=== PATIENT | female | born 1990 | race Two or more races ===

== ENCOUNTER 2022-06-29 19:10 | Emergency (ER) | payer MEDICAID, OTHER ==
[~2022-06-29] VITALS: Ht 157.5 cm; Wt 76.7 kg
[2022-06-29] MEDS ORDERED: TETANUS-DIPTH-ACEL PERTUSSIS 0.5ML SYR Tdap IM ONE (21:15)
[2022-06-29] MEDS ORDERED: cefTRIAXone SOD 1,000 MG VL IM ONE (21:15)
[2022-06-29] MEDS ORDERED: ACET-1158 PO (21:17)
[2022-06-29] MEDS ORDERED: CEPH-510 PO (21:17)
[2022-06-30 05:24] VITALS: BP 122/74
== END 2022-06-29 23:43 | disposition home or self-care (01) ==
LOC: ER 19:10
DX: S81.011A Laceration without foreign body, right knee, initial encounter (principal); Z98.890 Other specified postprocedural states; Y93.55 Activity, bike riding; Y92.89 Other specified places as the place of occurrence of the external cause; Y99.8 Other external cause status
CPT/HCPCS: 12002; 73562; 90471; 90715; 96372; 99284; J0696

== ENCOUNTER 2023-03-04 08:36 | Emergency (ER) | payer MEDICAID ==
[~2023-03-04] VITALS: Ht 157.5 cm; Wt 81.8 kg
[~2023-03-04 08:36] MED LIST: ACET500T58 PO; CEPH-510 PO
[2023-03-04 09:10] LABS: Basophils # (auto) 0 10 ^3/uL (0-0.2); Basophils % (auto) 0.2 % (0.0-2.0); Eosinophils # (auto) 0.1 10 ^3/uL (0-0.8); Hematocrit 41.7 % (36.0-46.0); Hemoglobin 13.9 g/dL (12.2-16.2); Lymphocytes # (auto) 1.8 10 ^3/uL (0.4-5.4); Mean Corpuscular Hemoglobin 30.1 pg (28.0-32.0); Mean Corpuscular Hgb Conc. 33.3 g/dL (32.0-36.0); Mean Corpuscular Volume 90.4 fL (80.0-100.0); Monocytes # (auto) 0.6 10 ^3/uL (0-1.3); Monocytes % (auto) 9.5 % (0.0-12.0); Neutrophils # (auto) 4.1 10 ^3/uL (1.6-8.6); Neutrophils % (auto) 61.3 % (37.0-80.0); Red Blood Cells 4.61 10^6/uL (4.0-5.20); White Blood Cell 6.8 10^3/uL (4.4-10.8)
[2023-03-04 11:03] VITALS: BP 122/78; PULSE 76; RESP 16; TEMP 97.9; O2SAT 98
== END 2023-03-04 11:07 | disposition home or self-care (01) ==
LOC: ER 08:36
DX: O20.0 Threatened abortion (principal); R10.2 Pelvic and perineal pain; Z3A.01 Less than 8 weeks gestation of pregnancy; Z91.013 Allergy to seafood
CPT/HCPCS: 36415; 76801; 76817; 84702; 85025

== ENCOUNTER 2023-06-12 21:23 | Emergency (ER) | payer MEDICAID ==
[~2023-06-12] VITALS: Ht 157.5 cm; Wt 84.9 kg
[2023-06-12 22:30] VITALS: BP 121/73; PULSE 81; RESP 20; TEMP 98
[2023-06-13 01:00] VITALS: O2SAT 96
== END 2023-06-13 01:09 | disposition home or self-care (01) ==
LOC: ER 21:23
DX: O26.892 Other specified pregnancy related conditions, second trimester (principal); J06.9 Acute upper respiratory infection, unspecified; R51.9 Headache, unspecified; Z3A.21 21 weeks gestation of pregnancy

== ENCOUNTER 2023-08-10 08:42 | Observation (INO) | payer MEDICAID ==
[~2023-08-10] VITALS: Ht 157.5 cm; Wt 79.4 kg
[2023-08-10] MEDS: LACTATED RINGER'S 1,000 ML IV ONE (10:47)
[2023-08-10] MEDS: FAMOTIDINE (10MG/ML) 2ML VL IV ONE (10:48)
[2023-08-10] MEDS: ONDANSETRON HCL 4 MG/2 ML VIAL IV PRN (10:48)
[2023-08-10 11:35] LABS: Basophils # (auto) 0 10 ^3/uL (0-0.2); Basophils % (auto) 0.1 % (0.0-2.0); Eosinophils # (auto) 0 10 ^3/uL (0-0.8); Eosinophils % (auto) 0.4 % (0.0-7.0); Hematocrit 34.5 % (36.0-46.0); Hemoglobin 11.7 g/dL (12.2-16.2); Lymphocytes # (auto) 0.7 10 ^3/uL (0.4-5.4); Lymphocytes % (auto) 8.9 % (10.0-50.0); Mean Corpuscular Hemoglobin 30.4 pg (28.0-32.0); Mean Corpuscular Volume 89.4 fL (80.0-100.0); Monocytes # (auto) 0.5 10 ^3/uL (0-1.3); Monocytes % (auto) 5.7 % (0.0-12.0); Neutrophils # (auto) 7.1 10 ^3/uL (1.6-8.6); Neutrophils % (auto) 84.9 % (37.0-80.0); Red Blood Cells 3.86 10^6/uL (4.0-5.20); Red Cell Distribution Width 13.6 % (11.8-14.3); White Blood Cell 8.3 10^3/uL (4.4-10.8)
[2023-08-10 11:55] LABS: Alanine Aminotransferase 20 U/L (7-40); Albumin 3.4 g/dL (3.2-4.8); Alkaline Phosphatase 80 U/L (46-116); Anion Gap 6 (5-15); Aspartate Aminotransferase 21 U/L (13-40); BUN/Creatinine Ratio 9.5 (10.0-20.0); Bilirubin, Total 0.4 mg/dL (0.2-1.0); Blood Urea Nitrogen 7 mg/dL (9-23); Calcium 8.6 mg/dL (8.7-10.4); Carbon Dioxide 20 mmol/L (20-30); Chloride 110 mmol/L (98-107); Glucose 75 mg/dL (74-106); Potassium 3.7 mmol/L (3.5-5.1); Sodium 136 mmol/L (136-145); Total Protein 6.3 g/dL (5.7-8.2)
[2023-08-10 12:02] LABS: Urine Bacteria None Seen /hpf (None Seen)
[2023-08-10 12:12] LABS: INR 0.97 (0.9-1.15); Partial Thromboplastin Time 28.8 SEC (24.5-34.5); Prothrombin Time 10.3 sec (9.3-11.8)
[2023-08-10 12:15] LABS: COVID19 ANTIGEN SOFIA FIA NEGATIVE (NEGATIVE); Rapid Influenza A Negative (Negative); Rapid Influenza B Negative (Negative)
[2023-08-10 12:30] LABS: Protein, Urine 21.7 mg/dL (0.0-11.9)
[2023-08-10 12:33] LABS: Amphetamine Screen, Urine Neg (NEGATIVE); Creatinine, Urine 91.91 mg/dL (30.0-125.0); Urine Protein/Creatinine Ratio 0.24
[2023-08-10 12:35] LABS: Barbiturate Scree,Urine Neg (NEGATIVE); Benzodiazephine Screen, Urine Neg (NEGATIVE); Cannabinoid Screen, Urine Neg (NEGATIVE); Cocaine Screen, Urine Neg (NEGATIVE); Opiate Scree,Urine Neg (NEGATIVE); Phencyclidine Screen, Urine Neg (NEGATIVE)
[2023-08-10 12:44] LABS: Urine Blood Negative /uL (Negative); Urine Clarity Turbid (Clear); Urine Color Light-Yellow (Yellow); Urine Mucus FEW (None Seen); Urine Protein, UAD TRACE (Negative); Urine Specific Gravity 1.012 (1.001-1.035); Urine Urobilinogen Normal (Negative); Urine WBC 5 /hpf (0 - 5); Urine pH 6.5 (5.0-9.0)
[2023-08-10] MEDS ORDERED: PREN-96 PO (13:19)
== END 2023-08-10 13:33 | disposition home or self-care (01) ==
LOC: LDRP 08:42
PROVIDERS: ADMIT Obstetrics & Gynecology; ATTEND Obstetrics & Gynecology
DX: O21.2 Late vomiting of pregnancy (principal); Z20.822 Contact with and (suspected) exposure to COVID-19; O26.893 Other specified pregnancy related conditions, third trimester; R51.9 Headache, unspecified; R10.13 Epigastric pain; Z3A.28 28 weeks gestation of pregnancy; Z88.6 Allergy status to analgesic agent; Z91.013 Allergy to seafood; Z79.899 Other long term (current) drug therapy
CPT/HCPCS: 36415; 59025; 80053; 80307; 81001; 81002; 82570; 84156; 84550; 85025; 85384; 85610; 85730; 87426; 87804; 96361; 96374; 96375; G0378; J2405; J3490; 96360

== ENCOUNTER 2024-02-18 20:08 | Emergency (ER) | payer MEDICAID ==
[~2024-02-18] VITALS: Ht 157.5 cm; Wt 76.6 kg
[~2024-02-18 20:08] MED LIST changes: +PREN-96 PO
[2024-02-18 20:18] VITALS: BP 124/83; PULSE 72; RESP 16; O2SAT 95
== END 2024-02-18 23:54 | disposition left against medical advice (07) ==
LOC: ER 20:08
DX: R51.9 Headache, unspecified (principal); R11.2 Nausea with vomiting, unspecified; M79.10 Myalgia, unspecified site; Z53.21 Procedure and treatment not carried out due to patient leaving prior to being seen by health care provider